=== PATIENT | male | born 1935 | race Caucasian/White ===

== ENCOUNTER 2019-06-27 12:11 | Inpatient (IN) | payer MEDICARE ==
[~2019-06-27] VITALS: Ht 182.9 cm; Wt 94.3 kg
--- NOTE | 2019-06-27 | NUR ---
BARREL CAP SETTER NOTES PER , ALLOWED TO TAKE SEROQUEL PO WITH REGARDING OF PT ORDERED NPO. WILL CONTINUE TO MONITOR. Addendum: 06/28/19 at 0252 by STERLING CLARK RN wrong time
--- NOTE | 2019-06-27 12:28 | NUR ---
PT REEC'D TO ER VIA EMS SYNOPE AND HX UTI FEVER 103 IV LEFT AC 18G INTACT MONITORS APPLIED AWAITING EVALUATION BY ER PROVIDER.
[2019-06-27] MEDS ORDERED: CEFEPIME 1 GM in IV D5W 50 ML IV STA (12:38)
[2019-06-27] MEDS ORDERED: VANCOMYCIN 1 GM in IV D5W 250 ML IV STA (12:38)
--- NOTE | 2019-06-27 12:43 | NUR ---
[facility] CATH 14FR INSERTED LAB AT BEDSIDE CULTURES AND LABS DRAWN SENT TO LAB UA SENT IV NS BOLUS GIVEN PER MD ORDER
[2019-06-27 12:58] LABS: APPEARANCE,URINE Slightly Cloudy (CLEAR); BILIRUBIN,URINE Negative (NEGATIVE); BLOOD, URINE Moderate Ery/uL (NEGATIVE); COLOR,URINE Yellow (YELLOW); KETONES,URINE Negative (NEGATIVE); LEUKOCYTE ESTERASE ,URINE Moderate (NEGATIVE); NITRITE, URINE Positive (NEGATIVE); PH,URINE 5.5 (5.0-8.0); PROTEIN,URINE Trace mg/dl (NEGATIVE); UGLUCOSE Negative (NEGATIVE); UROBILINOGEN,URINE 0.2 EU/dL (0.2)
[2019-06-27] MEDS ORDERED: IV NS 0.9% 1,000 ML BAG IV ONE (13:00)
[2019-06-27] MEDS ORDERED: CIPR-263 PO (13:02)
[2019-06-27] MEDS ORDERED: HYDR-3980 PO (13:10)
[2019-06-27] MEDS ORDERED: TRAM50TA2 PO (13:10)
[2019-06-27] MEDS ORDERED: ALPR0.255 PO (13:10)
[2019-06-27] MEDS ORDERED: LISI10TA5 PO (13:10)
[2019-06-27] MEDS ORDERED: TERA10CA4 PO (13:10)
[2019-06-27 13:13] LABS: BACTERIA,URINE 2+ /HPF (None Seen); SQUAMOUS EPITHELIAL CELL,UR Few /HPF (None Seen); WBC,URINE 21-50 /HPF (0-3)
--- NOTE | 2019-06-27 13:15 | NUR ---
MEDS GIVEN PER MD ORDER
[2019-06-27] MEDS ORDERED: VITA1TAB56 PO (13:23)
[2019-06-27] MEDS ORDERED: CIPR500T5 PO (13:23)
[2019-06-27] MEDS ORDERED: CHOL200076 PO (13:23)
[2019-06-27 13:30] LABS: BASOPHILS % (AUTO) 0.3 % (0.0-2.0); EOSINOPHILS % (AUTO) 0.1 % (0.0-6.0); HEMATOCRIT 40 % (39-51); HEMOGLOBIN 13.7 g/dL (13.5-17.5); LYMPHOCYTES # (AUTO) 0.1 /CMM (0.8-4.8); LYMPHOCYTES % (AUTO) 2.4 % (20.0-44.0); MEAN CORPUSCULAR HGB CONC 34 g/dl (31.0-36.0); MEAN CORPUSCULAR VOLUME 99 fL (80-96); MONOCYTES % (AUTO) 0.5 % (2.0-12.0); NEUTROPHILS % (AUTO) 96.7 % (43.0-81.0); PLATELET COUNT (AUTO) 175 /CMM (150-450); RED BLOOD CELL COUNT(AUTO) 4.04 MIL/uL (4.5-6.0); WHITE BLOOD COUNT (AUTO) 2.1 K/uL (4.3-11.0)
--- NOTE | 2019-06-27 13:32 | NUR ---
2ND BAG 1000CC NS UP , VANCO 1 GM IVPB PER MD
[2019-06-27 13:45] LABS: CALCIUM, SERUM 7.7 mg/dL (8.5-10.1); CARBON DIOXIDE 23 mmol/L (21-32); CHLORIDE 97 mmol/L (98-107); CREATININE 1.8 mg/dL (0.6-1.3); GLUCOSE 105 mg/dL (74-106); POTASSIUM 3.8 mmol/L (3.5-5.1); SODIUM SERUM 131 mmol/L (136-145); UREA NITROGEN, BLOOD 29 mg/dL (7-18)
--- NOTE | 2019-06-27 13:47 | NUR ---
VOIDED 700CC FROM [facility]
[2019-06-27 13:49] LABS: ALANINE AMINOTRANSFERASE 70 U/L (12-78); ALBUMIN 2.7 g/dL (3.4-5.0); ALKALINE PHOSPHATASE 77 U/L (46-116); ASPARTATE AMINOTRANSFERASE 189 U/L (15-37); BILIRUBIN,DIRECT 0.8 mg/dL (0.0-0.2); TOTAL PROTEIN, SERUM 6.1 g/dL (6.4-8.2)
--- NOTE | 2019-06-27 13:55 | NUR ---
LACTIC ACISD 3.7 NOTIFIED
--- NOTE | 2019-06-27 15:07 | NUR ---
SPOKE WITH DAUGHTER LINNEA UPDATE ON HER DAD .SHE ATATED PT HAS SEVERER DEMENTIA
--- NOTE | 2019-06-27 15:15 | NUR ---
CONT TO MONITOR VSS
--- NOTE | 2019-06-27 15:37 | NUR ---
OUTPUT 600 URINE
[2019-06-27 16:00] VITALS: BP 76/52
[2019-06-27] MEDS ORDERED: Z GUARD REMEDY 2 OZ OINT TP PRN (16:00)
[2019-06-27] MEDS ORDERED: ACETAMINOPHEN 650 MG/SUPP.RECT RC PRN (16:00)
[2019-06-27] MEDS ORDERED: MAGNESIUM HYDROXIDE 30 ML UDC PO PRN (16:00)
[2019-06-27] MEDS ORDERED: ZOLPIDEM TARTRATE 5 MG TABLET PO PRN (16:00)
[2019-06-27] MEDS ORDERED: FEE PK DOSING 1 MIN EA MC ONE (16:21)
[2019-06-27] MEDS: IV NS 0.9% 1,000 ML IV PRN (16:57)
[2019-06-27] MEDS: IV D5/ 0.9% NACL 1,000 ML IV PRN (16:57)
[2019-06-27] MEDS: CEFEPIME 2 GM in IV D5W 100 ML IV SCH (17:46)
--- NOTE | 2019-06-27 19:30 | NUR ---
RN CLOSING NOTE PATIENT REMAINED IN STABLE CONDITION DURING MY SHIFT. 1L BOLUS WAS GIVEN PER MD ORDER FOR HYPOTENSION. PATIENT TOLERATED WELL, BP WENT UP. ALL SCHEDULED MEDS GIVEN ON TIME, NO WOUNDS WERE NOTED ON ADMISSION. ADMISSION PACKED COMPLETED. PATIENT WAS KEPT CLEAN AND DRY. ALL MD ORDERS WERE CARRIED OUT. ISOLATION OBSERVED FOR COVID R/O. PATIENT KEPT ON RESTRAINTS FOR SAFETY REASONS, TRYING TO GET OUT OF BED AND PULLS ON LINES. SAFETY WAS MAINTAINED, CALL LIGHT WITHIN REACH, ENDORSED TO PM NURSE TO CONTINUE CARE.
--- NOTE | 2019-06-27 19:55 | NUR ---
ANIMAL CONTROL SUPERVISOR NOTES PATIENT IN BED, AWAKE, ALERT AND ORIENTED X 3. DEMANDING TO REMOVE RESTRAINTS. BREATHING EVEN AND UNLABORED ON ROOM AIR. SHOWS NO SIGNS OF ACUTE RESPIRATORY DISTRESS, NO ACUTE PAIN. TELE MONITOR ST 100'S. IV ON L AND R AC 18G SHOWS NO SIGNS OF INFILTRATION NO REDNESS. RUNNING D5NS AT 75ML/HR. FC INTACT, FLOWING CLEAR YELLOW URINE. SAFETY PRECAUTIONS IN PLACE. BED IN LOWEST POSITION, LOCKED, AND CALL LIGHT KEPT WITHIN REACH. WILL CONTINUE TO MONITOR.
[2019-06-27 21:00] VITALS: BP 94/54
--- NOTE | 2019-06-27 23:29 | NUR ---
PAGED RAILROAD WHEELS AND AXLE INSPECTOR HOSPITALIST REGARDING PATIENT HR 150'S ON THE MONITOR, VERY AGITATED AND TRYING TO GET OUT OF BED. ORDERED 12.5MG SEROQUEL PO X1. WILL ATTEND TO ORDERS.
[2019-06-27] MEDS ORDERED: QUETIAPINE FUMARATE 25 MG TABLET PO ONE (23:30)
--- NOTE | 2019-06-28 | NUR ---
ENVIRONMENTAL COMPLIANCE SPECIALIST NOTES PER MD, ALLOWED TO TAKE SEROQUEL PO WITH REGARDING OF PT ORDERED NPO. WILL CONTINUE TO MONITOR.
[2019-06-28 00:59] VITALS: BP 93/65
[2019-06-28 04:00] VITALS: BP 94/56
--- NOTE | 2019-06-28 06:57 | NUR ---
VACUUM FORM OPERATOR NOTES PATIENT IN BED, WITH INTERMITTENT SLEEP, ALERT AND ORIENTED X 3. REMAINED CONFUSED THROUGHOUT NIGHT, DEMANDING TO GET OUT OF BED. BREATHING EVEN AND UNLABORED ON ROOM AIR. SHOWS NO SIGNS OF ACUTE RESPIRATORY DISTRESS, NO ACUTE PAIN. TELE MONITOR ST 100'S. IV ON 20G SHOWS NO SIGNS OF INFILTRATION NO REDNESS. RUNNING D5NS AT 75ML/HR. FC INTACT, FLOWING CLEAR YELLOW URINE. SAFETY PRECAUTIONS IN PLACE. BED IN LOWEST POSITION, LOCKED, AND CALL LIGHT KEPT WITHIN REACH. WILL ENDORSE TO ONCOMING NURSE
[2019-06-28 06:58] LABS: BASOPHILS % (AUTO) 0.1 % (0.0-2.0); EOSINOPHILS % (AUTO) 0.2 % (0.0-6.0); HEMATOCRIT 39 % (39-51); HEMOGLOBIN 13.1 g/dL (13.5-17.5); LYMPHOCYTES # (AUTO) 0.3 /CMM (0.8-4.8); LYMPHOCYTES % (AUTO) 1.4 % (20.0-44.0); MEAN CORPUSCULAR HGB CONC 33 g/dl (31.0-36.0); MEAN CORPUSCULAR VOLUME 100 fL (80-96); MONOCYTES # (AUTO) 0.8 /CMM (0.1-1.30); MONOCYTES % (AUTO) 4.5 % (2.0-12.0); NEUTROPHILS # (AUTO) 17.6 /CMM (1.8-8.9); NEUTROPHILS % (AUTO) 93.8 % (43.0-81.0); PLATELET COUNT (AUTO) 145 /CMM (150-450); RED BLOOD CELL COUNT(AUTO) 3.92 MIL/uL (4.5-6.0); WHITE BLOOD COUNT (AUTO) 18.8 K/uL (4.3-11.0)
--- NOTE | 2019-06-28 07:20 | NUR ---
RN OPENING NOTE: PATIENT IS AWAKE IN BED. PATIENT IS ALERT X1, VERY CONFUSED. PATIENT IS ON RESTRAINTS D/T TRYING TO PULL OUT MEDICAL EQUIPMENT AND TUBING. PATIENT IS ON RA, SATING WELL, NO SIGNS OF RESPIRATORY DISTRESS NOTED. PATIENT IS ON TELE MONITOR SINUS TACHY 110. NO SIGNS OF ACUTE DISTRESS NOTED. #18 ON LAC, C/D/I, NO SIGNS OF COMPLICATIONS NOTED. SPEARS CATHETER DRAINING WELL, CLEAR YELLOW URINE. SAFETY MEASURES IMPLEMENTED, BED IN LOWEST POSITION, LOCKED, SIDE RAILS UP X4, CALL LIGHT WITHIN REACH. WILL CONTINUE TO MONITOR PATIENT.
[2019-06-28 07:26] LABS: CHOLESTEROL 124 mg/dL (<200); HDL CHOLESTEROL 38 mg/dL (40-60); LDL 64 mg/dL (0-99); TRIGLYCERIDES 122 mg/dL (30-150)
[2019-06-28 07:44] LABS: CALCIUM, SERUM 7.9 mg/dL (8.5-10.1); CARBON DIOXIDE 20 mmol/L (21-32); CHLORIDE 103 mmol/L (98-107); CREATININE 1.6 mg/dL (0.6-1.3); MAGNESIUM 1.8 mg/dL (1.8-2.4); POTASSIUM 3.8 mmol/L (3.5-5.1); SODIUM SERUM 136 mmol/L (136-145); UREA NITROGEN, BLOOD 26 mg/dL (7-18)
[2019-06-28 08:00] VITALS: BP 83/42
[2019-06-28 08:34] LABS: BAND % (MANUAL) 21 % (0.0-5.0); LYMPHOCYTES % (MANUAL) 4 % (16-48); MONOCYTES % (MANUAL) 4 % (0-11.0); MYELOCYTES % 3 % (0-0); NEUTROPHILS % (MANUAL) 68 (42-76)
--- NOTE | 2019-06-28 08:36 | NUR ---
DR ARNETT AWARE OF PATIENT'S BG OF 50MG/DL. PATIENT IS ASYMPTOMATIC, NO SIGNS OF ACUTE DISTRESS NOTED. ORDERS FOR DEXTROSE 50% IVP. WILL CONTINUE TO MONITOR PATIENT FOR CHANGES. Addendum: 06/28/19 at 1025 by CARMEL POOLE RN BG NOW 98.
[2019-06-28 08:37] LABS: GLUCOSE 50 mg/dL (74-106)
[2019-06-28] MEDS ORDERED: DEXTROSE 50%-WATER 50 ML DISP.SYRIN IVP ONE (09:00)
--- NOTE | 2019-06-28 09:00 | NUR ---
PATIENT IS VERY RESISTIVE WITH PLAN OF CARE. PATIENT IS VERY STRONG AND IS EASILY REMOVING THE SOFT WRIST ANKLE RESTRAINTS. PATIENT'S BED ALARM RANG, WHEN I RAN OVER TO HIS ROOM, PATIENT WAS ALREADY OUT OF BED WITH 2 ANKLE RESTRAINTS STILL ON HIM AND ONE WRIST RESTRAINT. I HAD ALREADY TOLD PATIENT TO CALL ME WHEN HE NEEDS TO GO TO THE BATHROOM BUT PATIENT IS EXTREMELY FORGETFUL D/T HX OF DEMENTIA. I WAS REMOVING HIS RESTRAINTS, I KEPT THE HAND RESTRAINT ON ONLY UNTIL I WAS GOING TO REMOVE THE SPEARS. THAT'S WHEN THE PATIENT SLIPPED OUT OF THE WRIST RESTRAINTS AND PUSHED ME AND RAN TO THE BATHROOM YANKING OUT HIS SPEARS. PATIENT IS NON-COMPLIANT WITH PLAN OF CARE. PATIENT HAS REMOVED TELE LEADS MULTIPLE TIMES. PATIENT IS REFUSING IV FLUIDS. MD IS AWARE OF PATIENT'S BEHAVIOR. WILL CONTINUE TO MONITOR PATIENT.
[2019-06-28] MEDS: QUETIAPINE FUMARATE 25 MG TABLET PO PRN (11:26)
[2019-06-28] MEDS: ENOXAPARIN SODIUM 30 MG/0.3 ML DISP.SYRIN SQ SCH (11:28)
[2019-06-28 12:00] VITALS: BP_SYST 118; BP_SYST 126; BP_DIAS 57; BP_DIAS 58
[2019-06-28] MEDS: VANCOMYCIN 1 GM in IV D5W 250ml IV SCH (12:24)
[2019-06-28 16:00] VITALS: BP 124/54
[2019-06-28] MEDS: ACETAMINOPHEN 325 MG TABLET PO PRN (16:46)
[2019-06-28] MEDS: CEFEPIME 2 GM in IV D5W 100 ML IV SCH (16:46)
--- NOTE | 2019-06-28 17:02 | NUR ---
PATIENT REMOVED TELE MONITOR AND LEADS AT LEAST 4 TIMES DURING MY SHIFT. PATIENT IS STATING THAT HE DOESN'T WANT THE MONITOR ON HIM, THAT IT'S MAKING HIM UNCOMFORTABLE. EXPLAINED THE IMPORTANCE OF IT. PATIENT CONTINUES TO REFUSE. INFORMED CN AND .
--- NOTE | 2019-06-28 17:14 | NUR ---
PATIENT IS VERY CONFUSED AND IS RESISTANT WITH THE PLAN OF CARE PROVIDED. PROVIDING CONTINUOUS EDUCATION BUT MEMORY IS IMPAIRED AND PATIENT CANNOT RECALL.
[2019-06-28] MEDS ORDERED: MORPHINE SULFATE INJ 2 MG/ML DISP.SYRIN IM STA (17:17)
--- NOTE | 2019-06-28 19:30 | NUR ---
BLOCK TRIMMER NOTES RECEIVED PT IN BED. AMBULATORY A/OX2 TO TIME AND PLACE WITH THE EPISODES OF CONFUSION. LUNGS CLEAR ON AUSCULTATION. ON TELE MONITOR WITH SR IN 80'S. RESTRAINTS DC'D. PATIENT IS ANXIOUS LAYING IN THE BED. SKIN INTACT NO S/S OF DISTRESS/ SOB NOTED. IV ACCESS ON LAC LEAKING, REMOVED AND SITE CHANGED. SPOKE WITH Jesus YOUSIF TO GET 1:1 SITTER. ORDER RECEIVED AND CARRIED OUT. SITTER BETSEY CHERY AT THE BEDSIDE. ALL SAFETY MEASURES IN PLACE. BED LOCKED AND IN LOWEST POSITION. WILL CONT TO MONITOR.
--- NOTE | 2019-06-28 19:33 | NUR ---
RESTRAINTS DC D/T 1:1 SITTER
--- NOTE | 2019-06-28 19:33 | NUR ---
RN CLOSING NOTE: PATIENT IS CURRENTLY IN ROOM, RESTLESS AND CONFUSED. STILL TRYING TO PULL OUT MEDICAL EQUIPMENT AND TUBING. 1:1 SITTER AT BEDSIDE. NO SIGNS OF RESPIRATORY DISTRESS NOTED. PATIENT REMOVED TELE LEADS AND IS REFUSING TELE MONITORING. NO SIGNS OF ACUTE DISTRESS NOTED. SAFETY MEASURES IMPLEMENTED, BED IN LOWEST POSITION, LOCKED, SIDE RAILS UP X4, CALL LIGHT WITHIN REACH. ENDORSED TO ANJU VAZ FOR CONTINUITY OF CARE.
[2019-06-28 20:00] VITALS: BP 148/70
--- NOTE | 2019-06-28 20:00 | NUR ---
RADIO PRESENTER NOTES LAC IV ACCESS NS DISCONTINUED AND RE-INSERTED TO THE RIGHT HAND. DRESSING INTACT AND FLUSHES WELL. BAL WELL.
[2019-06-29] VITALS: BP 152/70
--- NOTE | 2019-06-29 01:40 | NUR ---
0140 REPORT GIVEN TO ANJU GRIMALDO FOR TRANSFER OF CARE WITH QUESTIONS ANSWERED.
--- NOTE | 2019-06-29 01:56 | NUR ---
BEHAVIORAL HEALTH ASSISTANT NOTES PT TRANSFERRED TO [facility] VIA [facility] WITH DAVID CHARGE NURSE AND THE SITTER.
[2019-06-29 02:00] VITALS: BP 158/75
--- NOTE | 2019-06-29 02:00 | NUR ---
SOCIAL WORK NURSE OPENING NOTE RECEIVED PATIENT IN BED. A/O X2-3. TOLERATING ROOM AIR, RESPIRATIONS ARE EVEN AND UNLABORED. NO S/S SOB NOTED. DENIES PAIN AT THIS TIME. EXTERNAL TELE MONITOR READS SR HR 77. IN NO APPARENT DISTRESS. IV ACCESS IN RFA RUNNING D5NS@75ML/HR. PATIENT HAS A SITTER AT BEDSIDE. BED IS LOW AND LOCKED HOB ELEVATED IN SEMI FOWLERS, SIDE RIALS UP X2, EXTREMITIES OFFLOADED. CALL LIGHT WITHIN REACH. WILL CONTINUE TO MONITOR.
--- NOTE | 2019-06-29 02:00 | NUR ---
0200 TRANSFERRED TO VIA BED ON ACLS PROTOCOL. PATIENT AWAKE AND VERBALLY RESPONSIVE, ACCOMPANIED BY SITTER.
--- NOTE | 2019-06-29 06:17 | NUR ---
ACQUISITION MARKETING MANAGER CLOSING NOTE PATIENT IN BED. A/O X2-3. TOLERATING ROOM AIR, RESPIRATIONS ARE EVEN AND UNLABORED. NO SOB NOTED. NO C/O PAIN THROUGHOUT SHIFT. EXTERNAL TELE MONITOR READS SR HR 90. NO DISTRESS NOTED. IV ACCESS MAINTAINED IN RFA RUNNING D5NS@75ML/HR. PATIENT REMAINS WITH A SITTER AT BEDSIDE. BED REMAINS LOW AND LOCKED HOB ELEVATED IN SEMI FOWLERS, SIDE RIALS UP X2, EXTREMITIES OFFLOADED. CALL LIGHT WITHIN REACH. WILL ENDORSE TO NEXT SHIFT.
[2019-06-29 07:12] LABS: CARBON DIOXIDE 21 mmol/L (21-32); CHLORIDE 105 mmol/L (98-107); CREATININE 2.6 mg/dL (0.6-1.3); GLUCOSE 126 mg/dL (74-106); POTASSIUM 4.1 mmol/L (3.5-5.1); SODIUM SERUM 137 mmol/L (136-145); UREA NITROGEN, BLOOD 40 mg/dL (7-18)
[2019-06-29] MEDS: IV NS 0.9% 1,000 ML IV PRN (07:37)
--- NOTE | 2019-06-29 08:13 | NUR ---
MANAGER DEVELOPMENT NOTES PATIENT RECEIVED RESTING IN BED, NO RESPIRATORY DISTRESS, NO C/O PAIN AT THIS TIME. SITTER AT BEDSIDE. PATIENT ON FINISH MACHINE TENDER SR 77. SKIN WARM TO TOUCH, IV ACCESS SITE INTACT AND PATENT. INFORMED LANA SIMMONS OF PATIENT'S TROPONIN OF 0.868 AND LACTIC ACID AT 3.7 LAST DONE AT 06/26. PER IRIS REPEAT LACTIC ACID, ORDER CARRIED OUT. PATIENT'S NEEDS ATTENDED, BED ON LOWEST LOCKED POSITION, CALL LIGHT WITHIN REACH. WILL CONTINUE TO MONITOR.
[2019-06-29 08:41] LABS: BASOPHILS % (AUTO) 0.2 % (0.0-2.0); EOSINOPHILS % (AUTO) 0.7 % (0.0-6.0); HEMATOCRIT 41 % (39-51); HEMOGLOBIN 13.5 g/dL (13.5-17.5); LYMPHOCYTES # (AUTO) 0.4 /CMM (0.8-4.8); LYMPHOCYTES % (AUTO) 1.5 % (20.0-44.0); MEAN CORPUSCULAR HGB CONC 33 g/dl (31.0-36.0); MEAN CORPUSCULAR VOLUME 100 fL (80-96); MONOCYTES # (AUTO) 1.2 /CMM (0.1-1.30); NEUTROPHILS # (AUTO) 22.8 /CMM (1.8-8.9); NEUTROPHILS % (AUTO) 92.6 % (43.0-81.0); PLATELET COUNT (AUTO) 129 /CMM (150-450); RED BLOOD CELL COUNT(AUTO) 4.08 MIL/uL (4.5-6.0); WHITE BLOOD COUNT (AUTO) 24.6 K/uL (4.3-11.0)
[2019-06-29] MEDS: VITAMIN B COMP W-C 1 TAB TABLET PO SCH (09:37)
[2019-06-29] MEDS: CHOLECALCIFEROL 1,000 UNIT TABLET (VIT D3) PO SCH (09:37)
[2019-06-29] MEDS: ENOXAPARIN SODIUM 30 MG/0.3 ML DISP.SYRIN SQ SCH (09:39)
[2019-06-29 09:40] LABS: BAND % (MANUAL) 17 % (0.0-5.0); LYMPHOCYTES % (MANUAL) 3 % (16-48); MONOCYTES % (MANUAL) 7 % (0-11.0); NEUTROPHILS % (MANUAL) 73 (42-76)
[2019-06-29] MEDS: IV D5/ 0.9% NACL 1,000 ML IV PRN (10:08)
[2019-06-29] MEDS: VANCOMYCIN 1 GM in IV D5W 250ml IV SCH (12:35)
--- NOTE | 2019-06-29 17:00 | NUR ---
M/S RN NOTES INSERTED SPEARS CATH 16FR USING ASEPTIC TECHNIQUE, PATIENT HAD MINIMAL BLEEDING WITH INSERTION BUT TOLERATED PROCEDURE. DRAINING ABEL URINE. WILL CONTINUE TO MONITOR.
[2019-06-29] MEDS: CEFEPIME 2 GM in IV D5W 100 ML IV SCH (17:31)
--- NOTE | 2019-06-29 18:45 | NUR ---
M/S RN NOTES PATIENT RESTING IN BED, NO RESPIRATORY DISTRESS, NO C/O PAIN AT THIS TIME. SKIN WARM TO TOUCH, IV ACCESS SITE INTACT AND PATENT. F/C INTACT AND DRAINING ABEL URINE. PATIENT'S NEEDS ATTENDED, BED ON LOWEST LOCKED POSITION, CALL LIGHT WITHIN REACH. WILL ENDORSE TO ONCOMING NURSE.
--- NOTE | 2019-06-29 19:05 | NUR ---
MS RN NOTES RECEIVED PT IN BED AND RESTING WITH SITTER AT BEDSIDE. RESPIRATIONS EVEN AND UNLABORED WITH NO S./S OF ACUTE DISTRESS OR SOB NOTED. NO COMPLAINTS OF PAIN AT THIS TIME. PT WITH IV ACCESS SITE INTACT AND PATENT INFUSING D5NS @100CC/HR. SAFETY MEASURES IN PLACE WITH BED IN LOWEST LOCKED POSITION WITH SIDE RAILS UPX2. CALL LIGHT WITHIN REACH. WILL CONTINUE TO MONITOR.
[2019-06-29 20:00] VITALS: BP 130/74
[2019-06-30 01:07] LABS: APPEARANCE,URINE CLEAR (CLEAR); BILIRUBIN,URINE NEGATIVE (NEGATIVE); BLOOD, URINE LARGE Ery/uL (NEGATIVE); COLOR,URINE YELLOW (YELLOW); KETONES,URINE NEGATIVE (NEGATIVE); LEUKOCYTE ESTERASE ,URINE TRACE (NEGATIVE); NITRITE, URINE NEGATIVE (NEGATIVE); PH,URINE 5.5 (5.0-8.0); PROTEIN,URINE TRACE mg/dl (NEGATIVE); UGLUCOSE NEGATIVE (NEGATIVE); UROBILINOGEN,URINE 0.2 EU/dL (0.2)
[2019-06-30 01:14] LABS: CREATININE, URINE 60.7 MG/DL (30.0-125.0); URINE TOTAL PROTEIN 35.9 mg/dL (0-11.9)
[2019-06-30 01:19] LABS: BACTERIA,URINE Few /HPF (None Seen); RBC,URINE TOO NUMEROUS TO COUN /HPF (0-2); SQUAMOUS EPITHELIAL CELL,UR Rare /HPF (None Seen)
[2019-06-30 01:39] LABS: EOSINOPHIL,URINE None Seen
[2019-06-30] MEDS: IV D5/ 0.9% NACL 1,000 ML IV PRN ×2 (02:26→13:27)
[2019-06-30 06:36] LABS: BASOPHILS % (AUTO) 0.2 % (0.0-2.0); EOSINOPHILS % (AUTO) 0.5 % (0.0-6.0); HEMATOCRIT 39 % (39-51); HEMOGLOBIN 12.8 g/dL (13.5-17.5); LYMPHOCYTES # (AUTO) 0.6 /CMM (0.8-4.8); MEAN CORPUSCULAR HGB CONC 33 g/dl (31.0-36.0); MEAN CORPUSCULAR VOLUME 99 fL (80-96); MONOCYTES # (AUTO) 0.7 /CMM (0.1-1.30); MONOCYTES % (AUTO) 3.5 % (2.0-12.0); NEUTROPHILS # (AUTO) 19.3 /CMM (1.8-8.9); NEUTROPHILS % (AUTO) 92.8 % (43.0-81.0); PLATELET COUNT (AUTO) 124 /CMM (150-450); WHITE BLOOD COUNT (AUTO) 20.8 K/uL (4.3-11.0)
[2019-06-30] MEDS: ONDANSETRON HCL/PF 4 MG/2 ML VIAL IVP PRN (06:59)
[2019-06-30 07:04] LABS: CREATINE KINASE, TOTAL 596 U/L (39-308)
[2019-06-30 07:07] LABS: ALANINE AMINOTRANSFERASE 98 U/L (12-78); ALBUMIN 1.9 g/dL (3.4-5.0); ALKALINE PHOSPHATASE 54 U/L (46-116); ASPARTATE AMINOTRANSFERASE 95 U/L (15-37); BILIRUBIN,TOTAL 1.1 mg/dL (0.2-1.0); CALCIUM, SERUM 7.9 mg/dL (8.5-10.1); CARBON DIOXIDE 24 mmol/L (21-32); CHLORIDE 109 mmol/L (98-107); CREATININE 1.4 mg/dL (0.6-1.3); GLUCOSE 130 mg/dL (74-106); MAGNESIUM 2.2 mg/dL (1.8-2.4); POTASSIUM 3.6 mmol/L (3.5-5.1); SODIUM SERUM 142 mmol/L (136-145); TOTAL PROTEIN, SERUM 5.9 g/dL (6.4-8.2); UREA NITROGEN, BLOOD 33 mg/dL (7-18)
[2019-06-30 07:10] LABS: FREE PSA 2.91 ng/mL (0.00-45); PROSTATE SPECIFIC ANTIGEN SCR 75.85 ng/mL (0.00-4.00)
[2019-06-30 08:00] VITALS: BP 165/83
--- NOTE | 2019-06-30 08:00 | NUR ---
m/s activated sludge attendant: initial assessment received pt in bed asleep, but easily arousable. noted with lack of motivation, pt just wants to sleep. sitter at bedside. will clarify npo order with md today. encouraged to verbalized feelings. will continue to monitor.
[2019-06-30] MEDS: ENOXAPARIN SODIUM 30 MG/0.3 ML DISP.SYRIN SQ SCH (08:36)
[2019-06-30] MEDS: CHOLECALCIFEROL 1,000 UNIT TABLET (VIT D3) PO SCH (08:37)
[2019-06-30] MEDS: VITAMIN B COMP W-C 1 TAB TABLET PO SCH (08:37)
[2019-06-30 09:43] LABS: BAND % (MANUAL) 10 % (0.0-5.0); LYMPHOCYTES % (MANUAL) 4 % (16-48); MONOCYTES % (MANUAL) 4 % (0-11.0); NEUTROPHILS % (MANUAL) 82 (42-76)
--- NOTE | 2019-06-30 10:00 | NUR ---
m/s registrar [employer] or university: md visit dr. conroy here and informed dr. andujar re: cxr and am labs results. also made aware that pt has occ coughing. dr. conroy examined pt. npo order clarified with and haseeb to feed pt with cardiac diet. order carried out and acknowledged.
[2019-06-30] MEDS: CLONIDINE HCL 0.3 MG/24H PTWK 1 EA PATCH TD SCH (10:27)
--- NOTE | 2019-06-30 12:15 | NUR ---
m/s parts designer: notes received new order from dr. conroy. orders acknowledged.
[2019-06-30] MEDS: VANCOMYCIN 1 GM in IV D5W 250ml IV SCH (13:34)
--- NOTE | 2019-06-30 14:00 | NUR ---
m/s finish off operator: notes pt refused to go to ct today and wants it later as stated. pt wants to rest and sleep. pt complaining he didn't sleep enough last night. sitter remains at bedside. will continue to monitor.
[2019-06-30 16:00] VITALS: BP 134/51
--- NOTE | 2019-06-30 17:00 | NUR ---
m/s bleach machine operator: notes daughter called and transferred call to pt. sitter remains at bedside. will continue to monitor.
[2019-06-30] MEDS: CEFEPIME 2 GM in IV D5W 100 ML IV SCH (17:06)
--- NOTE | 2019-06-30 17:45 | NUR ---
m/s shank inspector: notes pt doesn't have much of an appetite, pt refused lunch and dinner per manager of international. pt still insisting wanting to sleep. no acute distress noted. will continue to monitor.
--- NOTE | 2019-06-30 18:41 | NUR ---
m/s system controller: notes resting comfortable. no distress noted. needs attended. will continue to monitor.
--- NOTE | 2019-06-30 19:37 | NUR ---
MS RN NOTES PATIENT IN BED, AWAKE, ALERT AND ORIENTED X 1-2. BREATHING EVEN AND UNLABORED ON ROOM AIR. SHOWS NO SIGNS OF ACUTE RESPIRATORY DISTRESS, NO ACUTE PAIN. PT COMPLAINING OF DRY COUGH. PAGED MD COMPRESSED YEAST SUPERVISOR AT 1935. AWAITING RESPONSE. FC IS CLEAN DRY AND INTACT. FLOWING URINE. IV ON R HAND 22G RUNNING D5 NS AT 100ML/HR. SHOWS NO SIGNS OF INFILTRATION, NO REDNESS. ITS CLEAN DRY AND INTACT. SAFETY PRECAUTIONS IN PLACE. BED IN LOWEST POSITION, LOCKED, AND CALL LIGHT KEPT WITHIN REACH. WILL CONTINUE TO MONITOR.
[2019-06-30 19:52] VITALS: BP 132/66
--- NOTE | 2019-06-30 20:00 | NUR ---
MS RN NOTES PATIENT REFUSED TO GO CT. WILL TRY AGAIN TOMORROW.
[2019-06-30] MEDS: QUETIAPINE FUMARATE 25 MG TABLET PO PRN (21:29)
--- NOTE | 2019-07-01 05:00 | NUR ---
MS RN NOTES REMOVED OLD IV SITE. PT APPEARED TO HAVE SMALL SUPERFICIAL SKIN TEAR. SKIN APPEARS TO BE SLIGHTLY EDEMATOUS AND HAS OLD SCARRING. PICTURE OF SKIN TEAR DOCUMENTED AND INCIDENT REPORTED. ORDERED WOUND CARE CONSULT. WILL CONTINUE TO MONITOR.
[2019-07-01 06:24] LABS: BASOPHILS # (AUTO) 0.1 /CMM (0.0-0.2); BASOPHILS % (AUTO) 0.4 % (0.0-2.0); HEMATOCRIT 39 % (39-51); HEMOGLOBIN 12.7 g/dL (13.5-17.5); LYMPHOCYTES % (AUTO) 7.6 % (20.0-44.0); MEAN CORPUSCULAR HGB CONC 33 g/dl (31.0-36.0); MEAN CORPUSCULAR VOLUME 99 fL (80-96); MONOCYTES # (AUTO) 1.1 /CMM (0.1-1.30); MONOCYTES % (AUTO) 8.7 % (2.0-12.0); NEUTROPHILS # (AUTO) 10.6 /CMM (1.8-8.9); NEUTROPHILS % (AUTO) 81.3 % (43.0-81.0); PLATELET COUNT (AUTO) 123 /CMM (150-450); RED BLOOD CELL COUNT(AUTO) 3.87 MIL/uL (4.5-6.0); WHITE BLOOD COUNT (AUTO) 13.1 K/uL (4.3-11.0)
--- NOTE | 2019-07-01 06:32 | NUR ---
MS RN NOTES PATIENT IN BED, WITH INTERMITTENT SLEEP, ALERT AND ORIENTED X 1-2. BREATHING EVEN AND UNLABORED ON ROOM AIR. SHOWS NO SIGNS OF ACUTE RESPIRATORY DISTRESS, NO ACUTE PAIN. PT HAS TWO EPISODE OF LOOSE BM. FC IS CLEAN DRY AND INTACT. FLOWING URINE. IV ON R FOREARM 22G RUNNING D5 NS AT 100ML/HR. SHOWS NO SIGNS OF INFILTRATION, NO REDNESS. ITS CLEAN DRY AND INTACT. ALL DUE MEDICATIONS GIVEN. SAFETY PRECAUTIONS IN PLACE. BED IN LOWEST POSITION, LOCKED, AND CALL LIGHT KEPT WITHIN REACH. WILL ENDORSE TO ONCOMING NURSE.
[2019-07-01 06:44] LABS: CALCIUM, SERUM 7.6 mg/dL (8.5-10.1); CREATININE 0.9 mg/dL (0.6-1.3); PHOSPHORUS 2.7 mg/dL (2.5-4.9); POTASSIUM 3.6 mmol/L (3.5-5.1)
[2019-07-01] MEDS ORDERED: VANCOMYCIN 1 GM in IV D5W 250ml IV SCH (07:00)
[2019-07-01 07:06] LABS: PTH, INTACT 43 pg/mL (15-65)
--- NOTE | 2019-07-01 07:30 | NUR ---
RECEIVED PT. THIS AM,ALERT AND ORIENTED X1-2.HAS SITTER. YELLS OUT FROM TIME TO TIME,CONFUSED AND INFO GIVEN TO HIM REPEATEDLY AND THEN ASKS SAME QUESTIONS.SIDE RAILS UP RN IN TO RMArlette TORRES.PT. WITH LOOSE COUGH.F/C TO GRAVITY DRAINAGE,WITH GOOD OUTPUT.VS STABLE.
[2019-07-01 08:00] VITALS: BP 114/63
[2019-07-01 08:02] LABS: BAND % (MANUAL) 5 % (0.0-5.0); EOSINOPHILS % (MANUAL) 2 % (0-4); LYMPHOCYTES % (MANUAL) 7 % (16-48); METAMYELOCYTES % 1 % (0-0); MONOCYTES % (MANUAL) 7 % (0-11.0); NEUTROPHILS % (MANUAL) 78 (42-76)
--- NOTE | 2019-07-01 08:14 | NUR ---
WOUND CARE CONSULT: REVIEWED NURSING DOCUMENTATION INCLUDING PHOTO WHICH SHOWS SKIN TEAR TO RT FOREARM. DISCUSSED PT WITH FOREST FIRE OFFICER AND NURSING STAFF. RECOMMENDATIONS MADE FOR SKIN PROTECTION AND WOUND CARE. WILL SEE PRN. CURRENT CECI SCORE IS 18. MD IN AGREEMENT WITH PLAN OF CARE.
[2019-07-01] MEDS: VITAMIN B COMP W-C 1 TAB TABLET PO SCH (09:00)
[2019-07-01] MEDS: CHOLECALCIFEROL 1,000 UNIT TABLET (VIT D3) PO SCH (09:00)
[2019-07-01 10:07] LABS: *SPE A/G RATIO 0.9 (0.7-1.7); *SPE ALBUMIN 2.4 g/dL (2.9-4.4); *SPE ALPHA-1-GLOBULIN 0.3 g/dL (0.0-0.4); *SPE ALPHA-2-GLOBULIN 0.8 g/dL (0.4-1.0); *SPE BETA GLOBULIN 0.8 g/dL (0.7-1.3); *SPE GLOBULIN, TOTAL 2.6 g/dL (2.2-3.9); *SPE M-SPIKE Not Observed g/dL (Not Observed); *SPEGAMMA GLOBULIN 0.7 g/dL (0.4-1.8)
[2019-07-01] MEDS: ENOXAPARIN SODIUM 30 MG/0.3 ML DISP.SYRIN SQ SCH (11:37)
--- NOTE | 2019-07-01 14:41 | NUR ---
swabs obtained for novel curtis virus and resp. path profile and taken to lab.
[2019-07-01 16:00] VITALS: BP 125/74
[2019-07-01] MEDS: CEFEPIME 2 GM in IV D5W 100 ML IV SCH (17:44)
--- NOTE | 2019-07-01 19:00 | NUR ---
ONE LOOSE STOOL,ONE DIARRHEA STOOL THIS SHIFT. MONITORING.NOW AT THIS TIME PT. ON R/O COVID 19 ISOLATION TILL RESULTS OF TESTING COME BACK.
--- NOTE | 2019-07-01 19:15 | NUR ---
RN OPENING NOTES Received patient awake, confused, on supine position on bed. On RA, no SOB/respiratory distress noted. With FC indwelling well with clear yellow urine output noted. With sitter at bedside. On enhance contact/airborne precautions observed by all HCPs. Kept on bed clean, dry and comfortable. On fall and aspiration precautions. Will continue to monitor accordingly.
[2019-07-01] MEDS: IV D5/ 0.9% NACL 1,000 ML IV PRN (21:19)
[2019-07-01] MEDS: QUETIAPINE FUMARATE 25 MG TABLET PO PRN (21:20)
[2019-07-01 21:59] VITALS: BP 120/76
--- NOTE | 2019-07-02 06:26 | NUR ---
RN CLOSING NOTES Patient asleep, easily awaken. On RA, no SOB/respiratory distress noted. Patient denies any discomfort at this time. Afebrile the whole shift, due meds given as ordered. All nursing needs attended. Kept on bed clean, dry and comfortable. No new complaints made. Endorsed.
--- NOTE | 2019-07-02 07:28 | NUR ---
RN opening notes Patient received on room air, no sob noted, confused at times. Luna cath present. RFA 22 with D5NS @ 40 ml pe hour. Bed at the lowest setting, call light within reach, side rails up x2.
[2019-07-02 07:46] LABS: BASOPHILS % (AUTO) 0.2 % (0.0-2.0); EOSINOPHILS % (AUTO) 3.8 % (0.0-6.0); HEMATOCRIT 40 % (39-51); HEMOGLOBIN 13.5 g/dL (13.5-17.5); LYMPHOCYTES # (AUTO) 1.1 /CMM (0.8-4.8); LYMPHOCYTES % (AUTO) 12.9 % (20.0-44.0); MEAN CORPUSCULAR HGB CONC 34 g/dl (31.0-36.0); MEAN CORPUSCULAR VOLUME 99 fL (80-96); MONOCYTES # (AUTO) 1.3 /CMM (0.1-1.30); MONOCYTES % (AUTO) 15.8 % (2.0-12.0); NEUTROPHILS # (AUTO) 5.5 /CMM (1.8-8.9); NEUTROPHILS % (AUTO) 67.3 % (43.0-81.0); PLATELET COUNT (AUTO) 136 /CMM (150-450); WHITE BLOOD COUNT (AUTO) 8.2 K/uL (4.3-11.0)
[2019-07-02 08:00] VITALS: BP 141/66
[2019-07-02 08:05] LABS: CALCIUM, SERUM 7.7 mg/dL (8.5-10.1); CREATININE 0.9 mg/dL (0.6-1.3); MAGNESIUM 1.8 mg/dL (1.8-2.4); POTASSIUM 3.3 mmol/L (3.5-5.1)
[2019-07-02] MEDS: CHOLECALCIFEROL 1,000 UNIT TABLET (VIT D3) PO SCH (08:08)
[2019-07-02] MEDS: ENOXAPARIN SODIUM 30 MG/0.3 ML DISP.SYRIN SQ SCH (08:08)
[2019-07-02] MEDS: VITAMIN B COMP W-C 1 TAB TABLET PO SCH (08:08)
[2019-07-02 09:50] LABS: BAND % (MANUAL) 4 % (0.0-5.0); EOSINOPHILS % (MANUAL) 4 % (0-4); LYMPHOCYTES % (MANUAL) 15 % (16-48); MONOCYTES % (MANUAL) 18 % (0-11.0); NEUTROPHILS % (MANUAL) 59 (42-76)
[2019-07-02] MEDS: ENSURE ENLIVE 237 ML LIQUID (VANILLA) PO SCH ×2 (10:00→16:47)
[2019-07-02] MEDS ORDERED: POTASSIUM CHLORIDE 20 MEQ TAB.PRT.SR PO SCH (10:30)
[2019-07-02] MEDS: CEFEPIME 2 GM in IV D5W 100 ML IV SCH ×2 (10:31→22:09)
--- NOTE | 2019-07-02 10:54 | NUR ---
Pt. still refusing exam. This is our 3rd attempt to do CT scan. RN Vijaya aware of the situation.
[2019-07-02 16:00] VITALS: BP 163/85
--- NOTE | 2019-07-02 18:29 | NUR ---
rn closing notes patient remains on room air, no sob noted, confused at most times. Luna cath present. Patient denies pain. R FA 22 with D5 NS @ 40 ml per hour. Patient refusing CT abdomen pelvis without contrast. Sitter at bedside 1;1. Bed at the lowest setting, call light within reach, side rails up x2. Will give report to NOC RN for BAO bedside.
--- NOTE | 2019-07-02 19:10 | NUR ---
RN OPENING NOTES Received patient awake, confused, on supine position on bed. On RA, no SOB/respiratory distress noted. With FC indwelling well with clear yellow urine output noted. With sitter at bedside. With 1:1 sitter noted. Kept on bed clean, dry and comfortable. On fall and aspiration precautions. Will continue to monitor accordingly.
[2019-07-02] MEDS: ACETAMINOPHEN 325 MG TABLET PO PRN (21:41)
[2019-07-03] MEDS: IV D5/ 0.9% NACL 1,000 ML IV PRN (00:59)
--- NOTE | 2019-07-03 06:46 | NUR ---
RN CLOSING NOTES Patient awake mostly within the shift. Still with confusion noted. 1:1 sitter at all times for patient safety. Due meds given as ordered. FC indwelling well with 2500cc clear yellow urine output noted. Kept on bed clean, dry and comfortable. Call light within easy reach. On fall and aspiration precautions. On contact/airborne precautions. Endorsed.
[2019-07-03 07:32] LABS: BASOPHILS % (AUTO) 0.3 % (0.0-2.0); EOSINOPHILS % (AUTO) 3.9 % (0.0-6.0); HEMATOCRIT 39 % (39-51); HEMOGLOBIN 13.2 g/dL (13.5-17.5); LYMPHOCYTES # (AUTO) 1.2 /CMM (0.8-4.8); LYMPHOCYTES % (AUTO) 11.6 % (20.0-44.0); MEAN CORPUSCULAR HGB CONC 34 g/dl (31.0-36.0); MEAN CORPUSCULAR VOLUME 98 fL (80-96); NEUTROPHILS # (AUTO) 7.6 /CMM (1.8-8.9); NEUTROPHILS % (AUTO) 74.2 % (43.0-81.0); PLATELET COUNT (AUTO) 171 /CMM (150-450); WHITE BLOOD COUNT (AUTO) 10.2 K/uL (4.3-11.0)
--- NOTE | 2019-07-03 07:33 | NUR ---
rn opening notes Patient remains on room air at this time, no sob noted, and denies pain at this time. Patient is confused at this time. Sitter 1;1. FC present and is draining. ct abdominal without contrast pending. Bed at the lowest setting, call light within reach, side rails up x2.
[2019-07-03 07:44] LABS: CALCIUM, SERUM 7.8 mg/dL (8.5-10.1); CREATININE 0.8 mg/dL (0.6-1.3); MAGNESIUM 1.6 mg/dL (1.8-2.4); PHOSPHORUS 3.3 mg/dL (2.5-4.9); POTASSIUM 2.9 mmol/L (3.5-5.1)
[2019-07-03 08:00] VITALS: BP 134/62
[2019-07-03] MEDS: VITAMIN B COMP W-C 1 TAB TABLET PO SCH (08:20)
[2019-07-03] MEDS: ENOXAPARIN SODIUM 30 MG/0.3 ML DISP.SYRIN SQ SCH (08:20)
[2019-07-03] MEDS: CHOLECALCIFEROL 1,000 UNIT TABLET (VIT D3) PO SCH (08:20)
[2019-07-03] MEDS: ENSURE ENLIVE 237 ML LIQUID (VANILLA) PO SCH ×2 (08:20→16:42)
[2019-07-03 08:30] LABS: BAND % (MANUAL) 4 % (0.0-5.0); EOSINOPHILS % (MANUAL) 3 % (0-4); LYMPHOCYTES % (MANUAL) 14 % (16-48); MONOCYTES % (MANUAL) 9 % (0-11.0); NEUTROPHILS % (MANUAL) 69 (42-76)
[2019-07-03 08:31] LABS: MYELOCYTES % 1 % (0-0)
[2019-07-03] MEDS ORDERED: POTASSIUM CL. PREMIX PERIPHER. 50 ML IV SCH (09:00)
[2019-07-03] MEDS: Magnesium 1GM/D5W 100ML PREMIX 100 ML IV SCH ×2 (09:54→10:36)
[2019-07-03] MEDS ORDERED: POTASSIUM CHLORIDE 10 MEQ TABLET.SA PO ONE (10:00)
[2019-07-03] MEDS: CEFEPIME 2 GM in IV D5W 100 ML IV SCH ×2 (11:23→22:47)
--- NOTE | 2019-07-03 18:33 | NUR ---
rn closing notes patient remains on room air, no sob noted, patient denies pain at this time. F/C present and is draining well. R FA D5NS @ 40 ml per hour. 1;1 sitter at this time. Bed at the lowest setting, call light within reach, side rails up x2. Will give report to NOC RN for BAO bedside.
--- NOTE | 2019-07-03 19:45 | NUR ---
RN NOTES RECEIVED PATIENT AWAKE AND CONFUSED, NO SIGNS OF ACUTE RESPIRATORY DISTRESS NOTED, WITH SITTER 1;1. SAFETY MEASURES IN PLACED, ASPIRATION PRECAUTION EMPHASIZED, BED IN LOW LOCKED POSITIONED, IV ACCESS ON HIS RIGHT FOREARM INTACT AND PATENT, IVF INFUSING WELL, SPEARS CATHETER INTACT AND PATENT, ALL NEEDS ATTENDED AND MET, KEEP CLEAN, WARM DRY AND COMFORTABLE. WILL CONTINUE TO MONITOR ACCORDINGLY.
[2019-07-03 20:00] VITALS: BP 173/68
[2019-07-03 20:09] VITALS: BP 173/68
--- NOTE | 2019-07-03 21:10 | NUR ---
RN NOTES PATIENT IS COMPLAINING THAT THE ROOM IS TOO COLD. CALLED CERTIFIED EXECUTIVE CHEF TO CONTACT ENGINEERING DEPARTMENT TO FIX ROOM TEMPERATURE. PATIENT IS YELLING AND CONFUSED AT THIS TIME, NEEDS ATTENDED, SAFETY MEASURES IN PLACE, SITTER AT BEDSIDE.
--- NOTE | 2019-07-04 00:01 | NUR ---
RN NOTES ASLEEP AT THIS TIME, SAFETY MEASURES IN PLACE. WILL CONTINUE TO MONITOR.
--- NOTE | 2019-07-04 06:32 | NUR ---
RN NOTES ALL NEEDS ATTENDED AND MET, ABLE TO REST AND SLEPT AT INTERVALS, SITTERS AT BEDSIDE, KEPT CLEAN DRY AND COMFORTABLE, SAFETY MEASURES IN PLACE, CALL LIGHT WITH IN EASY REACH. WILL ENDORSE TO AM NURSE FOR CONTINUITY OF CARE.
--- NOTE | 2019-07-04 07:25 | NUR ---
RN OPENING NOTE RECEIVED PATIENT IN BED RESTING SLEEPING COMFORTABLY. PATIENT IN NO ACUTE DISTRESS. NO SOB NOTED. PATIENT BREATHING IS EVEN AND UNLABORED. PATIENT BED ALARM IS ON. SAFETY PRECAUTIONS IN PLACE. PATIENT MAINTAINED ON A 1:1 SITTER. PATIENT BED IS LOCKED AND IN LOWEST POSITION. CALL LIGHT WITHIN REACH. WILL CONTINUE TO MONITOR.
[2019-07-04] MEDS: ENOXAPARIN SODIUM 30 MG/0.3 ML DISP.SYRIN SQ SCH (08:25)
[2019-07-04] MEDS: VITAMIN B COMP W-C 1 TAB TABLET PO SCH (08:26)
[2019-07-04] MEDS: ACETAMINOPHEN 325 MG TABLET PO PRN ×2 (08:26→21:06)
[2019-07-04] MEDS: CHOLECALCIFEROL 1,000 UNIT TABLET (VIT D3) PO SCH (08:26)
[2019-07-04] MEDS: ENSURE ENLIVE 237 ML LIQUID (VANILLA) PO SCH ×2 (08:26→16:05)
[2019-07-04] MEDS: IV D5/ 0.9% NACL 1,000 ML IV PRN (08:32)
[2019-07-04] MEDS: CEFEPIME 2 GM in IV D5W 100 ML IV SCH ×2 (11:25→23:02)
--- NOTE | 2019-07-04 15:45 | NUR ---
RN NOTES SPOKE WITH CHERRIE RUSSO HEAD GOLF PROFESSIONAL. PER CHERRIE WANTS TO ORDER CT GUIDED DRAINAGE OF FLUID COLLECTION IN ACCUMULATING FLUID IN THE PELVIS. PER CHERRIE SHE WANTS ORDER ACCORDING TO HOW RADIOLOGY WANTS IT ORDERED. SPOKE WITH ABEL IN RADIOLOGY AND CT GUIDED PERCUTANEOUS ABSCESS WITH CATH IS TO BE ORDERED FOR WHAT CHERRIE WANTS ORDERED. AND PUT SPECIFIC INSTRUCTIONS IN ORDER PER ABEL. INFORMED AND CLARIFIED WITH CHERRIE OF ORDER BEING PLACED, AND PER CHERRIE IS OKAY WITH ORDER. USHA CHRISTY ALSO MADE AWARE.
--- NOTE | 2019-07-04 15:58 | NUR ---
MS RN NOTE SPOKE WITH USHA CHRISTY, PER USHA SHE IS AWARE OF LIPASE LEVELS. NO IV FLUIDS NEEDED. PER MD TO RESUME BACK ON REGULAR DIET.
[2019-07-04 16:00] VITALS: BP 128/71
--- NOTE | 2019-07-04 16:34 | NUR ---
MS RN NOTE PER CHERRIE RUSSO FLAT LOCK OPERATOR, OBTAIN CONSENT WRITTEN FLUID COLLECTION COMPUTED TOMOGRAPHY PERCUTAENOUS DRAINAGE OF FLUID OR POSSIBLE ABSCESS WITH CATHETER, PELVIS.
--- NOTE | 2019-07-04 19:00 | NUR ---
RECIEVED IN BED AWAKE AND ALERT TO SELF. HE IS CONFUSED AND WILL ASK FOR HIS DAUGHTERS. NOTED HE HAS A SPEARS AND WILL ASK ME "HOW DO I GO PEE" WHEN GIVEN AN ANSWER WILL FORGET WITHIN THE MINUTE. HE FOLLOW DIRECTIONS AND HIS SPEECH IS CLEAR.
--- NOTE | 2019-07-04 19:28 | NUR ---
RN CLOSING NOTE PATIENT IN BED RESTING COMFORTABLY. PATIENT IN NO ACUTE DISTRESS. NO SOB NOTED. PATIENT BREATHING IS EVEN AND UNLABORED. PATIENT BED ALARM IS ON. SAFETY PRECAUTIONS IN PLACE. PATIENT KEPT CLEAN, DRY AND COMFORTABLE THROUGHOUT SHIFT. PATIENT MAINTAINED ON A 1:1 SITTER. PATIENT BED IS LOCKED AND IN LOWEST POSITION. CALL LIGHT WITHIN REACH. WILL ENDORSE CARE TO PM SHIFT FOR BAO.
[2019-07-04 20:00] VITALS: BP 148/74
[2019-07-05] MEDS: ACETAMINOPHEN 325 MG TABLET PO PRN (00:21)
[2019-07-05] MEDS: ONDANSETRON HCL/PF 4 MG/2 ML VIAL IVP PRN (02:18)
--- NOTE | 2019-07-05 05:24 | NUR ---
ENDING NOTES: AWAKE THRU THE NIGHT. FREQUENT CALLING OUT "HELP ME" OR "HELP ME I'M BLEEDING" OR "I'M SICK NEED HELP" HE IS CONFUSED AND LIKES TO HAVE SOMEONE AT THE BEDSIDE. TOLERATED SNACK ETHAN CRACKERS AND MILK. AMBULATED IN THE ROOM WITH WALKER AND THE NURSE AT HIS SIDE STEADY ON HIS LEGS, BUT NEEDS GUIDES AND STRONG DIRECTIONS. HE IS UNABLE TO COMPREHEND THE SPEARS CATHETER CONCEPT. FORGETFUL BED ALARM USED THRU THE NIGHT .
--- NOTE | 2019-07-05 07:30 | NUR ---
PT RECEIVED RESTING COMFORTABLY IN BED WITH EYES CLOSED. NO S/S OR C/O PAIN OR DISTRESS NOTED. SIDE RAILS UP X2, CALL LIGHT LEFT WITHIN REACH. WILL CONTINUE PLAN OF CARE.
--- NOTE | 2019-07-05 07:42 | NUR ---
RN OPENING NOTE RECEIVED PATIENT IN BED RESTING SLEEPING COMFORTABLY. PATIENT IN NO ACUTE DISTRESS. NO SOB NOTED. PATIENT BREATHING IS EVEN AND UNLABORED. PATIENT BED ALARM IS ON. SAFETY PRECAUTIONS IN PLACE. PATIENT BED IS LOCKED AND IN LOWEST POSITION. CALL LIGHT WITHIN REACH. WILL CONTINUE TO MONITOR.
[2019-07-05 08:00] VITALS: BP 117/51
[2019-07-05] MEDS: ENOXAPARIN SODIUM 30 MG/0.3 ML DISP.SYRIN SQ SCH (08:37)
--- NOTE | 2019-07-05 08:41 | NUR ---
MS RN NOTE HELD LOVENOX [address] DUE TO POSSIBLE CT DRAINAGE OF PELVIS TODAY.
[2019-07-05] MEDS: VITAMIN B COMP W-C 1 TAB TABLET PO SCH (08:44)
[2019-07-05] MEDS: ENSURE ENLIVE 237 ML LIQUID (VANILLA) PO SCH ×2 (08:44→17:52)
[2019-07-05] MEDS: CHOLECALCIFEROL 1,000 UNIT TABLET (VIT D3) PO SCH (08:45)
[2019-07-05] MEDS: CEFEPIME 2 GM in IV D5W 100 ML IV SCH ×2 (10:29→22:43)
[2019-07-05 10:56] LABS: BASOPHILS # (AUTO) 0.1 /CMM (0.0-0.2); BASOPHILS % (AUTO) 0.6 % (0.0-2.0); EOSINOPHILS % (AUTO) 1.7 % (0.0-6.0); HEMATOCRIT 39 % (39-51); HEMOGLOBIN 13.1 g/dL (13.5-17.5); LYMPHOCYTES # (AUTO) 1.2 /CMM (0.8-4.8); LYMPHOCYTES % (AUTO) 11.7 % (20.0-44.0); MEAN CORPUSCULAR HGB CONC 33 g/dl (31.0-36.0); MEAN CORPUSCULAR VOLUME 100 fL (80-96); MONOCYTES # (AUTO) 0.6 /CMM (0.1-1.30); MONOCYTES % (AUTO) 5.5 % (2.0-12.0); NEUTROPHILS # (AUTO) 8.5 /CMM (1.8-8.9); NEUTROPHILS % (AUTO) 80.5 % (43.0-81.0); PLATELET COUNT (AUTO) 177 /CMM (150-450); RED BLOOD CELL COUNT(AUTO) 3.93 MIL/uL (4.5-6.0); WHITE BLOOD COUNT (AUTO) 10.6 K/uL (4.3-11.0)
--- NOTE | 2019-07-05 10:59 | NUR ---
MS RN NOTE FOLLOWED UP WITH RADIOLOGY REGARDING CT FLUID DRAINAGE. PER ABEL YESTERDAY WONT HAVE PRINTING SHOP SUPERVISOR TILL SATURDAY. TODAY IOANA FROM RADIOLOGY STATED HE WILL FOLLOW UP AND MOST LIKELY BE DONE SATURDAY ANY WAYS. USHA CHRISTY AND CHERRIE RUSSO MADE AWARE.
--- NOTE | 2019-07-05 11:00 | NUR ---
MS ACTIVE DIRECTORY ENGINEER NOTE PATIENT IN BED RESTING COMFORTABLY. PATIENT IN NO ACUTE DISTRESS. NO SOB NOTED. PATIENT BREATHING IS EVEN AND UNLABORED. PATIENT KEPT CLEAN, DRY AND COMFORTABLE THROUGHOUT SHIFT. REPORT GIVEN TO VIANNEY RENE IN [facility]. PATIENT TRANSFERRED WITH BELONGINGS TO [facility] IN BED. JARETT MADE AWARE. ENDORSED ALL CARE TO VIANNEY RENE FOR BAO. Addendum: 07/05/19 at 1337 by VERNON BRAUN RN MS ACTIVE DIRECTORY ENGINEER NOTE PATIENT IN BED RESTING COMFORTABLY. PATIENT IN NO ACUTE DISTRESS. NO SOB NOTED. PATIENT BREATHING IS EVEN AND UNLABORED. PATIENT KEPT CLEAN, DRY AND COMFORTABLE THROUGHOUT SHIFT. REPORT GIVEN TO VIANNEY RENE IN [facility]. PATIENT TRANSFERRED WITH BELONGINGS TO [facility] IN BED. JARETT MADE AWARE. ENDORSED FOR VIANNEY TO FOLLOW UP WITH CT DRAINAGE IF ANYTHING UPDATED WITH RADIOLOGY. ENDORSED ALL CARE TO VIANNEY RENE FOR BAO.
[2019-07-05 11:13] LABS: BILIRUBIN,TOTAL 1.2 mg/dL (0.2-1.0); CALCIUM, SERUM 7.7 mg/dL (8.5-10.1); CREATININE 0.8 mg/dL (0.6-1.3); MAGNESIUM 1.8 mg/dL (1.8-2.4); PHOSPHORUS 3.2 mg/dL (2.5-4.9); POTASSIUM 3.4 mmol/L (3.5-5.1); TOTAL PROTEIN, SERUM 5.8 g/dL (6.4-8.2)
[2019-07-05 16:00] VITALS: BP 147/70
[2019-07-05] MEDS ORDERED: TRAMADOL HCL 50 MG TABLET PO PRN (16:00)
--- NOTE | 2019-07-05 18:59 | NUR ---
CHANGE OF SHIFT REPORT PT RESTING COMFORTABLY IN BED. NO S/S OR C/O PAIN OR DISTRESS NOTED. SIDE RAILS UP X2, CALL LIGHT LEFT WITHIN REACH. PT KEPT CLEAN, DRY, AND COMFORTABLE. NO SIGNIFICANT CHANGES SINCE PREVIOUS SHIFT.
--- NOTE | 2019-07-05 19:30 | NUR ---
MS RN OPENING NOTE RECEIVED PATIENT IN BED. A/OX1, PATIENT IS CONFUSED. TOLERATING ROOM AIR. RESPIRATIONS ARE EVEN AND UNLABORED. NO S/S SOB NOTED. DENIES PAIN AT THIS TIME. IN NO APPARENT DISTRESS. IV ACCESS IN THAD #22 PATENT AND SALINE LOCKED. SPEARS CATHETER IS PRESENT, DRAINING TO GRAVITY, URINE IS YELLOW AND CLEAR. BED IS LOW AND LOCKED, HOB ELEVATED IN HIGH FOWLERS, SIDE RIALS UP X3. CALL LIGHT WITHIN REACH. WILL CONTINUE TO MONITOR.
[2019-07-05 20:00] VITALS: BP 133/67
[2019-07-05 20:36] VITALS: BP 133/67
[2019-07-05] MEDS ORDERED: CEFEPIME 1 GM VIAL ONE (21:12)
--- NOTE | 2019-07-05 23:10 | NUR ---
MS RN NOTE CALLED [employer] INSPECTOR MD DR. ZIMMERMAN TO NOTIFY HIM THAT THE PATIENT IS VERY ANXIOUS AND CONFUSED, A/0X1, CONSTANTLY YELLING DESPITE CONSTANT REORIENTATION AND EDUCATION. TELEPHONE ORDERED [facility] 5MF IM ONE TIME NOW. TELEPHONE ORDER READ BACK, NOTED AND CARRIED OUT.
[2019-07-05] MEDS ORDERED: HALOPERIDOL LACTATE INJ 5 MG/ML VIAL IM ONE (23:30)
--- NOTE | 2019-07-06 06:20 | NUR ---
MS RN CLOSING NOTE PATIENT IN BED. A/OX1, CONFUSED. TOLERATING ROOM AIR. RESPIRATIONS ARE EVEN AND UNLABORED. NO SOB NOTED. NO C/O PAIN. NO DISTRESS NOTED. IV ACCESS MAINTAINED IN THAD #22 PATENT AND SALINE LOCKED. SPEARS CATHETER IS MAINTAINED, DRAINING TO GRAVITY, URINE IS YELLOW AND CLEAR OUTPUT 1000. BED IS LOW AND LOCKED, HOB ELEVATED IN HIGH FOWLERS, SIDE RIALS UP X3, B ED ALARM ON. CALL LIGHT WITHIN REACH. WILL ENDORSE TO NEXT SHIFT
--- NOTE | 2019-07-06 07:30 | NUR ---
MS/RN Opening Note Received Patient OA X 1, confusing and screaming , able to responds all stimuli. Does no appears, skin is warm to touch, kept clean/dry, intact IV site. Respiratory even and unlabored with room air. Encouraged patient not to out of the bed or pulling the norman cath. Call light within reach, will continue to monitor.
[2019-07-06 07:32] LABS: BASOPHILS % (AUTO) 0.4 % (0.0-2.0); EOSINOPHILS % (AUTO) 0.7 % (0.0-6.0); HEMATOCRIT 42 % (39-51); LYMPHOCYTES # (AUTO) 0.7 /CMM (0.8-4.8); LYMPHOCYTES % (AUTO) 6.4 % (20.0-44.0); MEAN CORPUSCULAR HGB CONC 33 g/dl (31.0-36.0); MEAN CORPUSCULAR VOLUME 98 fL (80-96); MONOCYTES # (AUTO) 0.5 /CMM (0.1-1.30); MONOCYTES % (AUTO) 4.7 % (2.0-12.0); NEUTROPHILS # (AUTO) 10.1 /CMM (1.8-8.9); NEUTROPHILS % (AUTO) 87.8 % (43.0-81.0); PLATELET COUNT (AUTO) 205 /CMM (150-450); RED BLOOD CELL COUNT(AUTO) 4.29 MIL/uL (4.5-6.0); WHITE BLOOD COUNT (AUTO) 11.5 K/uL (4.3-11.0)
[2019-07-06 07:59] LABS: CALCIUM, SERUM 7.9 mg/dL (8.5-10.1); CREATININE 0.8 mg/dL (0.6-1.3); MAGNESIUM 1.7 mg/dL (1.8-2.4); POTASSIUM 3.4 mmol/L (3.5-5.1)
[2019-07-06 08:00] VITALS: BP 131/65
[2019-07-06] MEDS: VITAMIN B COMP W-C 1 TAB TABLET PO SCH (08:33)
[2019-07-06] MEDS: CHOLECALCIFEROL 1,000 UNIT TABLET (VIT D3) PO SCH (08:33)
[2019-07-06] MEDS: ENOXAPARIN SODIUM 30 MG/0.3 ML DISP.SYRIN SQ SCH (08:38)
[2019-07-06] MEDS: ENSURE ENLIVE 237 ML LIQUID (VANILLA) PO SCH ×2 (08:38→17:00)
--- NOTE | 2019-07-06 09:00 | NUR ---
Patient noticed attempted pout of the bed many times and high risk of fall, obtained soft wrist restrains order informed Daughter/Radha over the phone.
[2019-07-06] MEDS ORDERED: POTASSIUM CHLORIDE 20 MEQ TAB.PRT.SR PO ONE (09:30)
[2019-07-06] MEDS ORDERED: Magnesium 1GM/D5W 100ML PREMIX 100 ML IV SCH (09:30)
[2019-07-06] MEDS ORDERED: POTASSIUM CHLORIDE 20 MEQ TAB.PRT.SR PO SCH (10:00)
[2019-07-06] MEDS: Magnesium 1GM/D5W 100ML PREMIX 100 ML IV SCH ×2 (10:23→11:39)
--- NOTE | 2019-07-06 10:32 | NUR ---
CT GUIDED PERC DRAINAGE TO BE CANCELED PER RADIOLOGIST. COLLECTION TOO SMALL TO DRAIN.
[2019-07-06] MEDS: CEFEPIME 2 GM in IV D5W 100 ML IV SCH ×2 (11:40→22:32)
--- NOTE | 2019-07-06 12:45 | NUR ---
Left message to Daughter/Lauren to call back us.
[2019-07-06 16:27] VITALS: BP 138/78
--- NOTE | 2019-07-06 18:30 | NUR ---
MS/RN Closing Note Patient in bed, does no c/o pain or any discomfort. skin is warm to touch, kept clean/dry, intact IV site. Respiratory even and unlabored with room air. Kept lower position of the bed with locked wheel and elevated head of bed. Call light within reach, will endorse slot shift supervisor.
--- NOTE | 2019-07-06 18:45 | NUR ---
Patient still noticed confuse attempting out of the bed and screaming at the room, kept continue to monitor patient safety.
--- NOTE | 2019-07-06 19:10 | NUR ---
MS RN OPENING NOTES: RECEIVED PATIENT IN BED. A/OX1, PATIENT IS CONFUSED, AND YELLS DAUGHTERS NAME. PT THINKS HE IS AT DAUGHTER'S HOUSE. REORIENTED. TOLERATING ROOM AIR. RESPIRATIONS ARE EVEN AND UNLABORED. NO S/S SOB NOTED. DENIES PAIN AT THIS TIME. IN NO APPARENT DISTRESS. BILATERAL SOFT RESTRAINTS NOTED. WILL ASSESS Q2HRS. IV ACCESS IN THAD #22 PATENT AND SALINE LOCKED. SPEARS CATHETER IS PRESENT, DRAINING TO GRAVITY, URINE IS YELLOW AND CLEAR. BED IS LOW AND LOCKED, HOB ELEVATED IN HIGH FOWLERS, SIDE RIALS UP X3. CALL LIGHT WITHIN REACH. WILL CONTINUE TO MONITOR.
[2019-07-06 20:00] VITALS: BP 146/82
[2019-07-06 20:43] VITALS: BP 156/82
--- NOTE | 2019-07-07 07:22 | NUR ---
MS RN CLOSING NOTES: PATIENT IN BED. REMAINS A/OX1, CONFUSED. TOLERATING ROOM AIR. RESPIRATIONS ARE EVEN AND UNLABORED. NO S/S SOB NOTED. DENIES PAIN AT THIS TIME. IN NO APPARENT DISTRESS. BILATERAL SOFT RESTRAINTS NOTED. ASSESSED Q2HRS FOR ANY SKIN BREAKDOWN. IV ACCESS IN THAD #22 PATENT AND SALINE LOCKED. SPEARS CATHETER IS PRESENT, DRAINING TO GRAVITY, URINE IS YELLOW AND CLEAR. OUTPUT OF 600MLS. BED IS LOW AND LOCKED, HOB ELEVATED IN HIGH FOWLERS, SIDE RIALS UP X3. CALL LIGHT WITHIN REACH. WILL ENDORSE TO DAY SHIFT NURSE FOR BAO.
--- NOTE | 2019-07-07 07:37 | NUR ---
RN OPENING NOTE RECEIVED PATIENT IN BED RESTING SLEEPING COMFORTABLY. PATIENT IN NO ACUTE DISTRESS. NO SOB NOTED. PATIENT BREATHING IS EVEN AND UNLABORED. PATIENT BED ALARM IS ON. SAFETY PRECAUTIONS IN PLACE. PATIENT TAKEN OFF RESTRAINTS AT THIS TIME, NOTED WITH GOOD CIRCULATION. PATIENT WITH 1:1 SITTER. PATIENT BED IS LOCKED AND IN LOWEST POSITION. CALL LIGHT WITHIN REACH. WILL CONTINUE TO MONITOR.
[2019-07-07 08:26] LABS: CALCIUM, SERUM 7.7 mg/dL (8.5-10.1); CREATININE 0.7 mg/dL (0.6-1.3); PHOSPHORUS 2.7 mg/dL (2.5-4.9); POTASSIUM 3.7 mmol/L (3.5-5.1)
[2019-07-07 08:27] LABS: BASOPHILS # (AUTO) 0.1 /CMM (0.0-0.2); BASOPHILS % (AUTO) 0.6 % (0.0-2.0); EOSINOPHILS % (AUTO) 1.1 % (0.0-6.0); HEMATOCRIT 42 % (39-51); HEMOGLOBIN 14.1 g/dL (13.5-17.5); LYMPHOCYTES % (AUTO) 8.5 % (20.0-44.0); MEAN CORPUSCULAR HGB CONC 33 g/dl (31.0-36.0); MEAN CORPUSCULAR VOLUME 98 fL (80-96); MONOCYTES # (AUTO) 0.7 /CMM (0.1-1.30); MONOCYTES % (AUTO) 5.7 % (2.0-12.0); NEUTROPHILS # (AUTO) 9.9 /CMM (1.8-8.9); NEUTROPHILS % (AUTO) 84.1 % (43.0-81.0); PLATELET COUNT (AUTO) 247 /CMM (150-450); RED BLOOD CELL COUNT(AUTO) 4.29 MIL/uL (4.5-6.0); WHITE BLOOD COUNT (AUTO) 11.8 K/uL (4.3-11.0)
[2019-07-07] MEDS: ENSURE ENLIVE 237 ML LIQUID (VANILLA) PO SCH ×2 (09:02→16:28)
[2019-07-07] MEDS: CHOLECALCIFEROL 1,000 UNIT TABLET (VIT D3) PO SCH (09:05)
[2019-07-07] MEDS: VITAMIN B COMP W-C 1 TAB TABLET PO SCH (09:05)
[2019-07-07 09:06] VITALS: BP 138/81
[2019-07-07] MEDS: ENOXAPARIN SODIUM 30 MG/0.3 ML DISP.SYRIN SQ SCH (09:06)
[2019-07-07] MEDS: CLONIDINE HCL 0.3 MG/24H PTWK 1 EA PATCH TD SCH (09:06)
[2019-07-07] MEDS: CEFEPIME 2 GM in IV D5W 100 ML IV SCH (11:14)
[2019-07-07] MEDS ORDERED: HALOPERIDOL LACTATE INJ 5 MG/ML VIAL IM PRN (15:00)
--- NOTE | 2019-07-07 17:30 | NUR ---
MS NECK SKEWER NOTE PATIENT MEDICALLY STABLE TO GO HOME WITH HOME HEALTH. PATIENT IN NO ACUTE DISTRESS. NO SOB NOTED. PATIENT BREATHING IS EVEN AND UNLABORED. PATIENT SPEARS CATHETER IN PLACE AND PATENT. PER DR. YODER ORDER TO KEEP SPEARS CATHETER IN PLACE GOING HOME AND FOLLOW UP WITH UROLOGY OUTPATIENT. PATIENT UNABLE TO COMPREHEND DC INSTRUCTIONS. DC INSTRUCTIONS PROVIDED TO RANDAL VIERA. DAUGHTER VERBALIZED UNDERSTANDING. PATIENT BELONGINGS LIST SIGNED BY TWO NURSES AND BELONGINGS WITH PATIENT. PATIENT KEPT CLEAN, DRY AND COMFORTABLE THROUGHOUT SHIFT. PATIENT SKIN ASSESSED, NO NEW SKIN BREAKDOWN NOTED. PATIENT WENT BY WHEELCHAIR TO [employer] [facility] GOING BACK HOME. MD AWARE OF DISCHARGE. Addendum: 07/07/19 at 1925 by VERNON BRAUN RN MS NECK SKEWER NOTE PATIENT MEDICALLY STABLE TO GO HOME WITH HOME HEALTH. PATIENT IN NO ACUTE DISTRESS. NO SOB NOTED. PATIENT BREATHING IS EVEN AND UNLABORED. PATIENT SPEARS CATHETER IN PLACE AND PATENT. PER DR. YODER ORDER TO KEEP SPEARS CATHETER IN PLACE GOING HOME AND FOLLOW UP WITH UROLOGY OUTPATIENT. PATIENT UNABLE TO COMPREHEND DC INSTRUCTIONS. DC INSTRUCTIONS PROVIDED TO RANDAL VIERA. DAUGHTER VERBALIZED UNDERSTANDING. PATIENT BELONGINGS LIST SIGNED BY TWO NURSES AND BELONGINGS WITH PATIENT. ID BAND REMOVED. PATIENT IV REMOVED. PATIENT KEPT CLEAN, DRY AND COMFORTABLE THROUGHOUT SHIFT. PATIENT SKIN ASSESSED, NO NEW SKIN BREAKDOWN NOTED. PATIENT WENT BY WHEELCHAIR TO [employer] [facility] GOING BACK HOME. MD AWARE OF DISCHARGE.
== END 2019-07-07 17:45 | disposition home health service (06) | DRG 871 ==
LOC: ER 12:21 → TELE-TD 14:57 → TELE1 06-28 12:20 → TELE 06-29 02:28 → MED 06-29 11:33 → MEDSG2 07-01 20:50 → MED 07-05 11:37
PROVIDERS: ADMIT Nurse Practitioner Acute Care
DX: A41.9 Sepsis, unspecified organism (principal); G93.41 Metabolic encephalopathy; N17.0 Acute kidney failure with tubular necrosis; I21.A1 Myocardial infarction type 2; J18.9 Pneumonia, unspecified organism; K85.90 Acute pancreatitis without necrosis or infection, unspecified; E87.1 Hypo-osmolality and hyponatremia; E87.2 Acidosis; K86.1 Other chronic pancreatitis; N13.6 Pyonephrosis; R65.20 Severe sepsis without septic shock; N18.9 Chronic kidney disease, unspecified; F39 Unspecified mood [affective] disorder; K76.0 Fatty (change of) liver, not elsewhere classified; G89.29 Other chronic pain; F03.90 Unspecified dementia, unspecified severity, without behavioral disturbance, psychotic disturbance, mood disturbance, and anxiety; E87.6 Hypokalemia; M47.9 Spondylosis, unspecified; R74.0 Nonspecific elevation of levels of transaminase and lactic acid dehydrogenase [LDH]; I12.9 Hypertensive chronic kidney disease with stage 1 through stage 4 chronic kidney disease, or unspecified chronic kidney disease; Q63.1 Lobulated, fused and horseshoe kidney; D69.6 Thrombocytopenia, unspecified
CPT/HCPCS: 36415; 71045-TC; 74018; 76700-TC; 80048-TC; 80053-TC; 80061-TC; 80076-TC; 80202-TC; 81000-TC; 82550-TC; 82570-TC; 82962-TC; 83605-TC; 83690-TC; 83735-TC; 83970; 84100-TC; 84153-TC; 84154-TC; 84155; 84155-TC; 84165; 84300-TC; 84484-TC; 85025-TC; 85610-TC; 85730-TC; 87040-TC; 87081-TC; 87086-TC; 92611-TC; 93307-TC; G0378; J0692; J1630; J1650; J2270; J2405; J3370; J3475; J3480; J7030; J7042; J7060